=== PATIENT | female | born 1990 | race Caucasian/White ===

== ENCOUNTER 2022-10-21 15:38 | Outpatient (REF) | payer MEDICAID, SELFPAY ==
--- NOTE | ~2022-10-21 | US_ITS ---
EXAMINATION: US PELVIS COMPLETE CLINICAL INFORMATION: Abnormal uterine bleeding COMPARISON: CT abdomen pelvis 05/02/2011 TECHNIQUE: Transabdominal and transvaginal imaging was performed. FINDINGS: The uterus is anteverted and retroflexed in position measuring 6.6 x 2.8 x 4.6 cm. A regular homogeneous endometrium is identified measuring 1.1 cm. Both ovaries are of normal size and echogenicity. The right measures 2.2 x 0.8 x 1.7 cm for a volume of 1.6 mL. The left measures 2.1 x 1.2 x 1.7 cm for a volume of 2.2 mL. There is trace physiologic volume pelvic free fluid. US/US pelvic and transvaginal IMPRESSION: Unremarkable pelvic ultrasound.
== END 2022-10-21 15:39 | disposition home or self-care (01) ==
LOC: HO.US 15:38
PROVIDERS: PCP Registered Nurse; Visit Provider Registered Nurse
DX: N93.9 Abnormal uterine and vaginal bleeding, unspecified (principal)
CPT/HCPCS: 76830; 76856

== ENCOUNTER 2022-11-18 09:23 | Outpatient (REF) | payer MEDICAID, SELFPAY ==
--- NOTE | 2022-11-18 09:29 | EMG_ITS ---
Please see scanned EMG / Nerve Conduction Report. MTDD
== END 2022-11-18 09:24 | disposition home or self-care (01) ==
LOC: HO.NEURO 09:23
PROVIDERS: PCP Registered Nurse; Visit Provider Family Medicine
DX: G62.89 Other specified polyneuropathies (principal)
CPT/HCPCS: 95885; 95910

== ENCOUNTER 2022-12-10 08:43 | Outpatient (REF) | payer MEDICAID, SELFPAY ==
--- NOTE | 2022-12-10 | EMG_ITS ---
Left tibial and peroneal motor studies were performed. Left superficial peroneal and sural sensory studies were performed. Tibial H-reflex was obtained and paraspinal muscles were tested with a needle. IMPRESSION: 1. Iwfi-he-rwdfnart left axonal sensory motor peripheral neuropathy. 2. Chronic left lower lumbar radiculopathy. MD ABBY Fields/AMELIE / [id number]
== END 2022-12-10 08:44 | disposition home or self-care (01) ==
LOC: HO.NEURO 08:43
PROVIDERS: PCP Registered Nurse; Visit Provider Family Medicine
DX: G62.89 Other specified polyneuropathies (principal)
CPT/HCPCS: 95860; 95886; 95907; 95909

== ENCOUNTER 2023-05-31 16:10 | Outpatient (REF) | payer MEDICAID, SELFPAY ==
[2023-05-31 17:57] LABS: Anion Gap 14 (12-20); Blood Urea Nitrogen 8 mg/dL (9-16); Calcium 9.1 mg/dL (8.4-10.2); Carbon Dioxide 26 mmol/L (22-29); Chloride 104 mmol/L (96-108); Estimated Glomerular Filt Rate > 60; Glucose Random 70 mg/dL (60-115); Potassium 3.9 mmol/L (3.3-5.1); Sodium 140 mmol/L (135-145)
[2023-05-31 18:12] LABS: TSH reflex Free T4 2.91 uIU/mL (0.32-4.0); Vitamin D 25-OH Total 22.7 ng/mL (>30)
== END 2023-05-31 16:11 | disposition home or self-care (01) ==
LOC: HO.HHCL 16:10
PROVIDERS: Visit Provider Internal Medicine
DX: R10.13 Epigastric pain (principal); K58.1 Irritable bowel syndrome with constipation; K21.9 Gastro-esophageal reflux disease without esophagitis
CPT/HCPCS: 36415; 80048; 82306; 84443

== ENCOUNTER 2023-12-31 10:01 | Outpatient (REF) | payer MEDICAID, SELFPAY ==
[2023-12-31 11:10] LABS: MANUAL DIFF FLAG NO
[2023-12-31 11:20] LABS: Basophils Percent Auto 0.5 % (0-2); Eosinophils Absolute Auto 0.1 X10*3/uL (0.0-0.4); Eosinophils Percent Auto 1.4 % (0-4); Hematocrit 36.4 % (37.0-47.0); Hemoglobin 11.7 g/dl (12.0-16.0); Imm Gran Abs Auto 0.02 X10*3/uL (0.00-0.03); Imm Gran Pct Auto 0.4 % (0.0-0.4); Lymphocytes Absolute Auto 2.1 X10*3/uL (1.2-4.9); Lymphocytes Percent Auto 37.7 % (20-40); Mean Corpuscular HGB Conc 32.1 g/dl (31.0-35.0); Mean Corpuscular Hemoglobin 28.5 pg (27.0-33.0); Mean Corpuscular Volume 88.8 fL (80.0-98.0); Mean Platelet Volume 10.8 fL (9.4-12.3); Monocytes Absolute Auto 0.4 X10*3/uL (0.1-1.2); Monocytes Percent Auto 7.2 % (2-11); Neutrophils Percent Auto 52.8 % (45-73); Platelet Count 161 X10*3/uL (160-400); Red Cell Distribution Width 13.6 % (11.0-16.0); White Blood Count 5.7 X10*3/uL (4.8-10.8)
[2023-12-31 12:09] LABS: Alanine Aminotransferase 15 U/L (0-31); Albumin Level 3.6 g/dL (3.5-5.0); Alkaline Phosphatase 86 U/L (39-117); Anion Gap 8 (12-20); Aspartate Amino Transferase 15 U/L (5-31); Bilirubin Total 0.3 mg/dL (0.0-1.0); Blood Urea Nitrogen 5 mg/dL (9-16); Calcium 8.8 mg/dL (8.4-10.2); Carbon Dioxide 29 mmol/L (22-29); Chloride 106 mmol/L (96-108); Cholesterol 176 mg/dL (<200); Estimated Glomerular Filt Rate > 60; Glucose Random 74 mg/dL (60-115); HDL Cholesterol 64 mg/dL (>40); LDL Cholesterol Calculated 101 mg/dL (<100); Sodium 139 mmol/L (135-145); TSH reflex Free T4 2.64 uIU/mL (0.32-4.0); Total Protein 6.3 g/dL (6.5-8.0); Triglycerides 57 mg/dL (<150)
[2023-12-31 12:29] LABS: Estimated Average Glucose 105 mg/dL; Hemoglobin A1c % 5.3 % (<6.0)
[2023-12-31 14:22] LABS: Reflex LDLD? No
[2024-01-01 04:03] LABS: HBS Num1 0.37 mIU/mL (0-7.99); HBc Num1 0.32 S/CO (0.00-0.79); HIV AB/AG Nonreactive (Nonreactive); HIV Num 1 0.06 S/CO (0.00-0.99); Hepatitis A Antibody IgM 0.15 Index (0-0.79); Hepatitis B Core Antibody Nonreactive (Nonreactive); Hepatitis B Surface Antigen Negative (Negative); ~HepC Num1 0.17 S/CO (0.00-0.79); ~Hepatitis A Antibody IgM Nonreactive (Nonreactive); ~Hepatitis B Surface Antibody NONREACTIVE (Nonreactive); ~Hepatitis C Antibody Nonreactive (Nonreactive)
[2024-01-04 12:09] LABS: RPR Rapid Plasma Reagin NON-REACTIVE (NON-REACTIVE)
== END 2023-12-31 10:02 | disposition home or self-care (01) ==
LOC: HO.HHCL 10:01
PROVIDERS: Visit Provider Internal Medicine
DX: Z00.00 Encounter for general adult medical examination without abnormal findings (principal)
CPT/HCPCS: 36415; 80053; 80061; 83036; 84443; 85025; 86592; 86704; 86706; 86709; 86803; 87340; 87389

== ENCOUNTER 2025-01-30 10:21 | Outpatient (REF) | payer MEDICAID, SELFPAY ==
--- OUTSIDE RECORDS SUMMARY | 2025-01-30 09:30 | XMS_ITS | Encounter Summary ---
Author Organization [employer] Address [address] [place] [address] 7 [place] [address] Care Team Providers Care Leather Goods Sales Representative Name Role Phone Nguyen Garza MD Primary Care Provide r Reason for Referral * Consultation (Routine) - Authorized Specialty Diagnoses / Procedures Referred By Contcortez boyce Referred To Contact Behavioral Health Diagnoses Anxiety Nguyen Garza MD [address] [place] [phone] Phone: tel: fax: Referral ID Status Reason Start Date Expiration Date Visits Requested Visits Authorized [id number] Authorized Specialty Services Required 01/30/2025 01/30/2026 1 1 Encounter Details Date Type Department Care Team (Latest Contact Info) Description 01/30/2025 9:30 AM EDT Office Visit [facility] [address] [place] [address] [phone] Nguyen Garza MD [address] [place] [address] [phone] Anxiety (Primary Dx); Neuropathy; Chronic migraine without aura without status migrainosus, not intractable; Chronic bilateral low back pain without sciatica; Encounter for preventive care; Opioid dependence, uncomplicated (CMS/HCC); Dietary counseling; Exercise counseling Social History Tobacco Use Types Packs/Day Years Used Date Smoking Tobacco: Every Day Cigarettes 0.3 20 Smokeless Tobacco: Never Alcohol Use Standard Drinks/Week Comments Not Currently 0 (1 standard drink = 0.6 oz pur e alcohol) Depression Answer Date Recorded Patient Health Questionnaire-9 Score 13 12/31/2023 Patient Health Questionnaire-9 Score 13 12/31/2023 Last PHQ-9: Questionnaire Data Not on file 0 12/31/2023 Housing Stability Answer Date Recorded What is your housing situation today? I do not have housing (Staying with others, in a hotel, in a jail, living outside on the street, on a beach, in a car, or in a park 12/10/[address] you li ve. Do you have problems with any of the following? Not on file 12/10/2024 Food Insecurity Answer Date Recorded Within the past 12 months, y ou worried that your food would run out before you got money to buy more: Sometimes True 2023 Within the past 12 months,th e food you bought just didn't last and you didn't have enough money to get more: Sometimes True 12/31/2023 Transportation Answer Date Recorded In the past 12 months, has l ack of transportation kept you from medical appts, meetings, work or from getting things needed for daily living? Yes, it has kept me from medical appointments or getting medications. 12/31/2023 Utilities Answer Date Recorded In the past 12 months, has t he electric, gas, oil or water company threatened to shut off services in your home? No 12/10/2023 Depression Answer Date Recorded Patient Health Questionnaire-2 Score 3 12/31/2023 Internet Access Answer Date Recorded Internet Access Q1 No 12/31/2023 Internet Access Q2 My internet/Wi-Fi ac cess is not consistent or reliable 12/31/2023 Comments Unknown Sex and Gender Information Value Date Recorded Sex Assigned at Female 03/02/2022 10:19 AM EDT Legal Sex Female 10:19 AM EDT Gender Identity Female 03/02/2022 10:19 AM EDT Sexual Orientation Straight 03/02/2022 10 :19 AM EDT documented as of this encounter Last Filed Vital Signs Vital Sign Reading Time Taken Comments Blood Pressure 124/82 01/30/2025 9:56 AM EDT Pulse 74 01/30/2025 9:56 AM EDT Temperature 36.4 C (97.6 F) 01/30/2025 9:56 AM EDT Respiratory Rate 20 01/30/2025 9:56 AM EDT Oxygen Saturation 94% 01/30/2025 9:56 AM EDT Inhaled Oxygen Concentration - - Weight 78.3 kg (172 lb 9.6 oz) 01/30/2025 9:56 A M EDT Height 165.1 cm (5' 5 ) 01/30/2025 9:56 AM EDT Body Mass Index 28.72 01/30/2025 9:56 AM EDT documented in this encounter Plan of Treatment Upcoming Encounters Date Type Department Care Team (Late st Contact Info) Description 03/07/2025 3:30 PM EST Telemedicine [facility] [address] [place] [address] Nguyen Garza MD [address] [place] [address] Scheduled Orders Name Type Priority Associated Diagnoses Orde r Schedule CBC auto differential Lab Routine Encounter for preventive care Expected: 01/30/2025 (Approximate), Expires: 01/30/2026 Comprehensive Metabolic Panel Lab Routine Encounter for preventive care Expected: 01/30/2025 (Approximate), Expires: 01/30/2026 Hemoglobin A1c Lab Routine Encounter for preventive care Expected: 01/30/2025 (Approximate), Expires: 01/30/2026 HIV-1/2 Antigen and Antibodies, Fourth Generation, with Reflexes Lab Routine Encounter for preventive care Expected: 01/30/2025 (Approximate), Expires: 01/30/2026 Hepatitis C Antibody with Reflex to HCV, RNA, Quantitative, Real-Time PCR Lab Routine Encounter for preventive care Expected: 01/30/2025, Expires: 01/30/2026 Lipid Panel, Standard Lab Routine Encounter for preventive care Expected: 01/30/2025 (Approximate), Expires: 01/30/2026 Vitamin D, 25-Hydroxy, Total, Immunoassay Lab Routine Encounter for preventive care Expected: 01/30/2025 (Approximate), Expires: 01/30/2026 TSH with Reflex to Free T4 Lab Routine Encounter for preventive care Expected: 01/30/2025 (Approximate), Expires: 01/30/2026 RPR (Monitor) with Reflex to Titer Lab Routine Encounter for preventive care Expected: 01/30/2025, Expires: 01/30/2026 Chlamydia/N. Gonorrhoeae RNA, TMA, Vaginal Microbiology Routine Encounter for preventive care Ordered: 01/30/2025 Scheduled Referrals Name Type Priority Associated Diagnoses Order Schedule Referral to Behavioral Health Outpatient Referral Routine Anxiety Expected: 01/30/2025 (Approximate), Expires: 07/30/2026 documented as of this encounter Visit Diagnoses Diagnosis Anxiety- Primary Anxiety state, unspecified Neuropathy Mononeuritis of unspecified site Chronic migraine without aura without status migrainosus, not intractable Chronic bilateral low back pain without sciatica Encounter for preventive care Opioid dependence, uncomplicated (CMS/HCC) (HCC) Dietary counseling Dietary surveillance and counseling Exercise counseling documented in this encounter Additional Health Concerns Assessment Noted Time PHQ-9 Depression Total Score: 13 024 9:31 AM EDT documented as of this encounter Care Teams Leather Goods Sales Representative Relationship Specialty Start Date End Date Nguyen Garza MD [address] [place] [address] PCP - General Internal Medicine 08/28/24 Maribeth Brunner Mitigation SupervisorOrthopedic Brace Maker 10/21/23 documented as of this encounter
--- OUTSIDE RECORDS SUMMARY | 2025-01-30 11:31 | XMS_ITS | Encounter Summary ---
Author Organization [employer] Address [address] 7[address] [place] [address] Care Team Providers Care Direct Mail Marketer Name Role Phone Esperanza BowerP Primary Care Provider [phone] Jyothi Mayo NP Primary Care Provider [phone] Nguyen Garza MD Primary Care Provide r Encounter Details Date Type Department Care Team (Late st Contact Info) Description 02/22/2023 Telephone [facility] [address] [place], [place] [phone] Esperanza Bower FNP [address] [place], [place] [phone] Social History Tobacco Use Types Packs/Day Years Used Date Smoking Tobacco: Every Day Cigarettes 0.3 20 Smokeless Tobacco: Never Alcohol Use Standard Drinks/Week Comments Not Currently 0 (1 standard drink = 0.6 oz pur e alcohol) Depression Answer Date Recorded Patient Health Questionnaire-9 Score 8 08/20/2022 Housing Stability Answer Date Recorded What is your housing situation today? I do not have housing (Staying with others, in a hotel, in a mcc, living outside on the street, on a beach, in a car, or in a park 02/07/[address] you li ve. Do you have problems with any of the following? None of the above 02/07/2023 Food Insecurity Answer Date Recorded Within the past 12 months, y ou worried that your food would run out before you got money to buy more: Sometimes True 2022 Within the past 12 months,th e food you bought just didn't last and you didn't have enough money to get more: Sometimes True 02/15/2023 Transportation Answer Date Recorded In the past 12 months, has l ack of transportation kept you from medical appts, meetings, work or from getting things needed for daily living? Yes, it has kept me from medical appointments or getting medications.;Yes, it has kept me from non-medical meetings, work, or getting things that I need 02/07/2023 Utilities Answer Date Recorded In the past 12 months, has t he [employer], gas, oil or water [employer] threatened to shut off services in your home? No 02/15/2023 Depression Answer Date Recorded Patient Health Questionnaire-2 Score 2 08/20/2022 Comments Unknown Sex and Gender Information Value Date Recorded Sex Assigned at Female 03/02/2022 10:19 AM EDT Legal Sex Female 10:19 AM EDT Gender Identity Female 03/02/2022 10:19 AM EDT Sexual Orientation Straight 03/02/2022 10 :19 AM EDT documented as of this encounter Plan of Treatment Upcoming Encounters Date Type Department Care Team (Late st Contact Info) Description 03/07/2025 3:30 PM EST Telemedicine [facility] [address] [place] [address] [phone] Nguyen aGrza MD [address] [place] [address] documented as of this encounter Visit Diagnoses Not on filedocumented in this encounter Additional Health Concerns Assessment Noted Time PHQ-9 Depression Total Score: 8 08/21/19 23 1:17 PM EDT documented as of this encounter Care Teams Direct Mail Marketer Relationship Specialty Start Date End Date Esperanza Bower FNP [address] [place] [address] PCP - General Family Medicine 11/04/22 01/03/24 Jyothi Mayo NP [address] [place] [address] PCP - General Family Medicine 01/04/24 08/27/24 Nguyen Garza MD [address] [place] [address] PCP - General Internal Medicine 08/28/24 Maribeth Brunner Personal CounselorConveyor Attendant 10/21/23 documented as of this encounter
--- OUTSIDE RECORDS SUMMARY | 2025-01-30 11:31 | XMS_ITS | Encounter Summary ---
Author Organization [employer] Address [address] [place] [address] 7 [place] [address] Care Team Providers Care Packing Floor Worker Name Role Phone Esperanza BowerP Primary Care Provider [phone] Jyothi Mayo NP Primary Care Provider [phone] Nguyen Garza MD Primary Care Provide r Reason for Visit * Reason Comments Med Refill Encounter Details Date Type Department Care Team (Late st Contact Info) Description 12/15/2022 Refill [facility] [address] [place] [address] Alla Roe FNP Constipation, unspecified constipation type Social History Tobacco Use Types Packs/Day Years Used Date Smoking Tobacco: Every Day Cigarettes 0.3 20 Smokeless Tobacco: Never Alcohol Use Standard Drinks/Week Comments Not Currently 0 (1 standard drink = 0.6 oz pur e alcohol) Depression Answer Date Recorded Patient Health Questionnaire-9 Score 8 08/20/2022 Depression Answer Date Recorded Patient Health Questionnaire-2 [...] Info) Description 03/07/2025 3:30 PM EST Telemedicine [facility] [address] [place], [place] [phone] Nguyen Garza MD [address] [place] [address] documented as of this encounter Visit Diagnoses Diagnosis Constipation, unspecified constipation type documented in this encounter Additional Health Concerns Assessment Noted Time PHQ-9 Depression Total Score: 8 08/21/19 23 1:17 PM EDT documented as of this encounter Care Teams Packing Floor Worker Relationship Specialty Start Date End Date Esperanza Bower FNP [address] [place], [place] [phone] PCP - General Family Medicine 11/04/22 01/03/24 Jyothi Mayo NP [address] [place] [address] [phone] PCP - General Family Medicine 01/04/24 08/27/24 Nguyen Garza MD [address] [place] [address] [phone] PCP - General Internal Medicine 08/28/24 Maribeth Brunner [employer] Mdm DeveloperLicensed Sales Assistant 10/21/23 documented as of this encounter
--- OUTSIDE RECORDS SUMMARY | 2025-01-30 11:31 | XMS_ITS | Encounter Summary ---
Author Organization [employer] Address [address] [place] [address] 7 [place] [address] Care Team Providers Care Client Analyst Name Role Phone Esperanza Bower Primary Care Provider [phone] Jyothi Mayo NP Primary Care Provider [phone] Nguyen Garza MD Primary Care Provide r Reason for Visit * Reason Onset Date Comments PT-1 11/17/2023 Encounter Details Date Type Department Care Team (Late st Contact Info) Description 11/17/2023 Telephone [facility] [address] [place], [place] [phone] Esperanza Bower FNP [address] [place], [place] [phone] PT-1 Social History Tobacco Use Types Packs/Day Years [...] with others, in a hotel, in a long-term, living outside on the street, on a [...] AM EDT documented as of this encounter Miscellaneous Notes * Telephone Encounter - Blake Grupo - 11/17/2023 4:38 PM EDT Patient calling requesting PT1 Home Address verified: Y/N: Yes Provider name or facility name: [facility] Facility Address: [address] [facility] Escort needed: Y/N: No Do you have a wheelchair: Y/N: No If yes- Manual or electric: N/A Visits: 3 monthly Patient calling requesting PT1 Home Address verified: Y/N: Yes Provider name or facility name: [facility] Facility Address: [address] Escort needed: Y/N: No Do you have a wheelchair: Y/N: No If yes- Manual or electric: N/A Visits: 2 monthly Patient calling requesting PT1 Home Address verified: Y/N: Yes Provider name or facility name: [facility] Facility Address: [address] [place] [address] Escort needed: Y/N: No Do you have a wheelchair: Y/N: No If yes- Manual or electric: N/A Visits: 4 monthly Patient calling requesting PT1 Home Address verified: Y/N: Yes Provider name or facility name: [facility] Facility Address: [address] [facility] [place] needed: Y/N: No Do you have a wheelchair: Y/N: No If yes- Manual or electric: N/A Visits: Once every 3 months documented in this encounter Plan of Treatment Upcoming Encounters Date Type Department Care Team (Late st Contact Info) Description 03/07/2025 3:30 PM EST Telemedicine [facility] [address] [facility] [place] [address] Nguyen Garza MD [address] [facility] [place] [address] documented as of this encounter Visit Diagnoses Not on filedocumented in this encounter Additional Health Concerns Assessment Noted Time PHQ-9 Depression Total Score: 8 08/21/19 23 1:17 PM EDT documented as of this encounter Care Teams Client Analyst Relationship Specialty Start Date End Date Esperanza Bower FNP [address] [facility] [place] [address] PCP - General Family Medicine 11/04/22 01/03/24 Jyothi Mayo NP [facility] [place] [address] PCP - General Family Medicine 01/04/24 08/27/24 Nguyen Garza MD [facility] [place] [address] PCP - General Internal Medicine 08/28/24 Maribeth Brunner Formula Room WorkerReview Manager 10/21/23 documented as of this encounter
--- OUTSIDE RECORDS SUMMARY | 2025-01-30 11:31 | XMS_ITS | Encounter Summary ---
Author Organization [employer] Address [address] [facility] 7t [place] [address] Care Team Providers Care Wardrobe Specialist Name Role Phone Esperanza Bower Primary Care Provider [phone] Jyothi Mayo NP Primary Care Provider [phone] Nguyen Garza MD Primary Care Provide r Reason for Visit * Reason Comments Med Refill Encounter Details Date Type Department Care Team (Late st Contact Info) Description 02/11/2023 Refill [facility] [address] [place] [address] Alla Roe FNP Social History Tobacco Use Types Packs/Day Years [...] with others, in a hotel, in a nursing home, living outside on the street, on a [...] Info) Description 03/07/2025 3:30 PM EST Telemedicine [facility] [address] [place] [address] Nguyen Garza MD [address] [place] [address] documented as of this encounter Visit Diagnoses Not on filedocumented in this encounter Additional Health Concerns Assessment Noted Time PHQ-9 Depression Total Score: 8 08/21/19 23 1:17 PM EDT documented as of this encounter Care Teams Wardrobe Specialist Relationship Specialty Start Date End Date Esperanza Bower FNP [address] [place] [address] PCP - General Family Medicine 11/04/22 01/03/24 Jyothi Mayo NP [address] [place] [address] PCP - General Family Medicine 01/04/24 08/27/24 Nguyen Garza MD [address] [place] [address] PCP - General Internal Medicine 08/28/24 Maribeth Brunner Manager AdministrativeBalance Sheet Analyst 10/21/23 documented as of this encounter
--- OUTSIDE RECORDS SUMMARY | 2025-01-30 11:31 | XMS_ITS | Encounter Summary ---
Author Organization [employer] Address [address] [facility] 7t [place] [address] Care Team Providers Care Director Inpatient Headache Program Name Role Phone Esperanza Bower Primary Care Provider [phone] Jyothi Mayo NP Primary Care Provider [phone] Nguyen Garza MD Primary Care Provide r Reason for Visit * Reason Comments Med Refill Encounter Details Date Type Department Care Team (Late st Contact Info) Description 08/18/2023 Refill [facility] [address] [place], [place] [phone] Esperanza Bower FNP [address] [place], [place] [phone] Social History Tobacco Use Types Packs/Day Years [...] with others, in a hotel, in a senior care, living outside on the street, on a [...] the past 12 months, has t he [employer], gas, oil or water [employer] threatened to shut off services in your [...] Info) Description 03/07/2025 3:30 PM EST Telemedicine [facility] [address] [place] [address] Nguyen Garza MD [address] [place] [address] documented as of this encounter Visit Diagnoses Not on filedocumented in this encounter Additional Health Concerns Assessment Noted Time PHQ-9 Depression Total Score: 8 08/21/19 23 1:17 PM EDT documented as of this encounter Care Teams Director Inpatient Headache Program Relationship Specialty Start Date End Date Esperanza Bower FNP [address] [place], [place] [phone] PCP - General Family Medicine 11/04/22 01/03/24 Jyothi Mayo NP [address] [place], [place] [phone] PCP - General Family Medicine 01/04/24 08/27/24 Nguyen Garza MD [address] [place] [address] PCP - General Internal Medicine 08/28/24 Maribeth Brunner Interior HorticulturistPari Mutuel Ticket Seller 10/21/23 documented as of this encounter
--- OUTSIDE RECORDS SUMMARY | 2025-01-30 11:31 | XMS_ITS | Clinical Summary ---
Author Organization [employer] Address [address] [facility] [address] [place] [address] Care Team Providers Care Blocker And Cutter Contact Lens Name Role Phone Nguyen Garza MD Primary Care Provide r Allergies Active Allergy Reactions Criticality Noted Date Comments Ibuprofen Hives 07/09/2022 Medications methadone (Dolophine) 10 MG/5ML solution Take by mouth. Active lansoprazole (Prevacid SoluTab) 15 MG disintegrating tabletIndications :Dyspepsia,Irrita ble bowel syndrome with constipation,Cindy roesophageal reflux disease, unspecified whether esophagitis present DISSOLVE 1 TABLET ON TONGUE IN THE MORNING BEFORE SEALLOWING. DO NOT CHEW, CUT OR BREAK 90 tablet 06/02/19 24 Active famotidine (Pepcid) 20 MG tabletIndications :Dyspepsia Take 1 tablet (20 mg) by mouth 2 times daily. 60 tablet 11 12/31/19 24 Active Banophen 25 MG capsuleIndication s:Other polyneuropathy TAKE 1 CAPSULE BY MOUTH EVERY DAY NEEDED FOR ITCHING OR ALLERGIES (PRE-MED PRIOR TO MELOXICAM) 30 capsule 2 01/26/20 24 Active cetirizine (ZyrTEC) 10 MG tablet TAKE 1 TABLET BY MOUTH EVERY DAY IN THE MORNING 90 tablet 2 05/18/19 25 Active sennosides (Senokot) 8.6 MG tablet Take 1 tablet (8.6 mg) by mouth Once per day. 30 tablet 11 08/23/19 25 026 Active FLUoxetine (PROzac) 20 MG capsule Take 1 capsule (20 mg) by mouth Once per day. 90 capsule 2 08/23/19 25 Active multivitamin () 27-0.8 MG tablet Take 1 tablet by mouth Once per day. 30 tablet 11 08/23/19 25 Active gabapentin (Neurontin) 300 MG capsuleIndication s:Neuropathy Take 1 capsule (300 mg) by mouth 3 times daily. 90 capsule 2 01/31/20 25 026 Active SUMAtriptan (Imitrex) 50 MG tabletIndications :Chronic migraine without aura without status migrainosus, not intractable Take 1 tablet (50 mg) by mouth 1 (one) time if needed for migraine for up to 18 doses. May repeat dose once in 2 hours if no relief. Do not exceed 2 doses in 24 hours. 9 tablet 1 01/31/20 25 Active cyclobenzaprine (Flexeril) 5 MG tabletIndications :Chronic bilateral low back pain without sciatica Take 1 tablet (5 mg) by mouth 3 times daily for 10 days. 30 tablet 01/31/20 25 025 Active acetaminophen (Tylenol Extra Strength) 500 MG tabletIndications :Chronic bilateral low back pain without sciatica Take 2 tablets (1,000 mg) by mouth every 8 (eight) hours if needed for moderate pain for up to 15 days. 30 tablet 2 01/31/20 25 025 Active Acetaminophen Extra Strength 500 MG tablet TAKE 1 TABLET BY MOUTH EVERY 6 (SIX) HOURS IF NEEDED FOR MILD PAIN. 120 tablet 10/17/19 25 025 Discontinued Active Problems Problem Noted Date Diagnosed Date Chronic bilateral low back pain without sciatica 01/30/2025 Positive test 08/22/2024 Assessment & Plan (08/22/2024 7:20 PM EDT): She is approx 7-8 week , she doesn't know the exact date of her LMP, will order quantitative hCG. We discussed with patient regarding options and she wants to discuss it with her partner. I will preemptively taper down escitalopram and overlap with fluoxetine in 2 weeks and she can follow-up with her PCP to continue titration of medications Order labs Start multivitamins Advised to quit THC and avoid any recreational substance She will be referred to OB after labs (quant HCG) are done, she has PP information as well She feels safe at home, she is able to reach out for safety Advised to let her methadone program providers re Smoking 12/31/2023 H/O abnormal cervical Papanicolaou smear 024 Other constipation 12/31/2023 Assessment & Plan (08/22/2024 5:31 PM EDT): Increase water intake, use Senokot and increase fiber I will DC Linzess due to positive test. She needs to follow-up with PCP Assessment & Plan (12/31/2023 9:58 AM EDT): Drink more water and more fiber on her diet I start her also on senna Encounter for preventive care 12/31/2023 Assessment & Plan (12/31/2023 9:59 AM EDT): See HPI Venous insufficiency of both lower extremities 0 12/31/2023 Assessment & Plan (12/31/2023 9:57 AM EDT): Elevate legs at the end of the day Wear compression stockings every day Gastroesophageal reflux disease 05/31/2023 Assessment & Plan (05/31/2023 4:15 PM EST): Counseled to quit smoking, weight reduction. Start lansoprazole daily x 2m FU with GI. Dyspepsia 05/31/2023 Assessment & Plan (12/31/2023 9:57 AM EDT): I advise patient to avoid NSAIDs, spicy and acid food, I advise to eat at the same time every day, I advise to elevate the head of the bed and take medications as prescribe Assessment & Plan (05/31/2023 4:14 PM EST): Sec to GERD Use lansoprazole daily and simethicone prn She will cut back on high carbs, sugary drinks FU with GI. Housing instability 11/04/2022 Overview (11/04/2022): Referred to [facility] on 08/20/22 Housing situation has changed Assessment & Plan (11/04/2022 6:21 PM EDT): Needs f/u by SDOH Will task SDOH team Followup 2 months or sooner PRN with new PCP Hair loss 11/04/2022 Overview (11/04/2022): Chronic hair loss x 17 years Thought it might be r/t wearing hair so tight Never evaluated by Derm RPR negative 07/29/22 TSH WNL 07/29/22 Assessment & Plan (11/04/2022 6:22 PM EDT): Educated that biotin is not recommended for hair loss since the level may not improve hair loss and excess may affect thyroid Refer to Derm Followup 2 months or sooner PRN with new PCP Abnormal uterine bleeding (AUB) 09/30/2022 Irritable bowel syndrome with constipation 09/30 Overview (11/04/2022): Discussed constipation, chronic according to hx Educated to increase water intake, at least 4 bottles/day. Recommended daily adult intake 8 bottles/day. Miralax made stool too soft/watery, and urgency Assessment & Plan (05/31/2023 4:16 PM EST): Continue colace, add yaz Wong miralax FU with GI Counseled to get labs done ordered by previous PCP Assessment & Plan (11/04/2022 2:34 PM EDT): Discontinue miralax Rx Docusate sodium 100mg BID PRN, start taking 1 tablet at bedtime PRN first time. Refer to GI F/u PRN Heartburn 09/30/2022 Poor dentition 08/23/2022 Overview (11/04/2022): Pt has poor dentition, broken teeth, caries Refer to Dentist on 08/20/22 Assessment & Plan (11/04/2022 6:18 PM EDT): Made appt with [facility] Dental Upcoming Stable Followup 2 months or sooner PRN with new PCP Opioid dependence, uncomplicated (CMS/HCC) 08/23 Overview (11/04/2022): Currently in recovery; taking daily Methadone (has Narcan Rx). Stable Baseline EKG performed by Methadone clinic, Assessment & Plan (11/04/2022 6:17 PM EDT): F/u PRN Neuropathy 08/23/2022 Overview (11/04/2022): Hx c/w neuropathic pain EMG ordered 07/09/22, not performed yet Will Task MA to check on status of scheduling Pt would like to avoid medications that further potentiate Methadone and strong medications Discontinue alpha lipoic acid, too expensive, out of pocket Rx Gabapentin 100mg TID PRN for neuropathy Educated on Sedating SE, and risk of medication. Pt will notify methadone clinic of new medication Assessment & Plan (11/04/2022 6:18 PM EDT): Improving nerve pain, worse in feet and arms Not sedating Stable EMG pending LUE for 11/18/22 F/u 1-2 month or sooner PRN with new PCP Chronic migraine without aur a without status migrainosus, not intractable 08/23/2022 Overview (11/04/2022): Chronic x 5 years, worsening. Daily. Aggravated by stress, photophobia Treating by falling asleep, Excedrin migraine 1-2 tablets three times a day. Pt reports chronic migraines, excessive excedrin daily use Educated pt on medication overuse headaches Will Rx Sumatriptan 25 mg PRN, educated to take 1 tablet at onset of headache and 2 hours later another tablet if sx persist Assessment & Plan (11/04/2022 6:17 PM EDT): Improved Continue sumatriptan Followup 2 months or sooner PRN with new PCP Anxiety 08/23/2022 Overview (11/04/2022): Multiple life stressors Prozac 20 mg daily Pt has referral for therapy, initial BE by [facility] every Wednesday Assessment & Plan (08/22/2024 5:32 PM EDT): She has been out of care at [facility] for few months now, awaiting a new psychiatrist. We had an extensive discussion about importance of mental health treatment during and , I will refer her to team and she needs to follow-up with PCP I will taper down escitalopram for the next 2 to 3 weeks and start fluoxetine 20 mg in 2 weeks. DC gabapentin Patient feels safe at home and is able to reach out for safety, she tells her partner. Assessment & Plan (11/04/2022 6:18 PM EDT): Continue therapy Continue current regimen Followup 2 months or sooner PRN with new PCP Health care maintenance 08/23/2022 Overview (11/04/2022): Routine Health Maintenance: Immunizations: Pt needs Hep B Vaccine Dose #1, received today 08/20/22 HIV: Nonreactive 07/29/22 Hep C: Nonreactive 07/29/22 Hepatitis B: Surface antibodies nonreactive 07/29/22. Hep B dose #1 on 08/20/22 Pap Smear: 09/30/22 NILM, HPV neg, repeat 5 years. 09/2027 Mammogram: Not due yet Colonoscopy: Not due yet Lung cancer: Discussed smoking cessation Eye: discuss at next visit Dental: pending [facility] dental appt Encounters Date Type Department Care Team Description 01/30/2025 9:30 AM EDT Office Visit [facility] [address] [place] [phone] Nguyen Garza MD Anxiety (Primary Dx); Neuropathy; Chronic migraine without aura without status migrainosus, not intractable; Chronic bilateral low back pain without sciatica; Encounter for preventive care; Opioid dependence, uncomplicated (CMS/HCC); Dietary counseling; Exercise counseling 01/30/2025 Travel 01/29/[address] [phone] Nguyen Garza MD Chart Prep 01/22/2025 Patient Outreach [address] [phone] Nguyen Garza MD Pre-visit Planning ((Unable to reach for PVP screening and or LVM) to be completed in office) 01/18/[address] [phone] Nguyen Garza MD Medication Question 12/13/[address] [phone] Sera Oneal CNM chart prep 11/29/2024 Patient Outreach [address] [phone] Nguyen Garza MD Care Coordination ([facility] outreach for SDOH PT-1 and food needs-referral completed /) 11/29/[address] [phone] Nguyen Garza MD pt1 from Last 3 Months Immunizations Immunization Administration Dates Next Due Hep A, Adult 12/14/2012,03/16/2012 Hep B, Adolescent or Pediatric 01/15/2005,2004,09/12/2002 Hep B, adult 08/20/2022 Influenza, IIV3, injectable 01/15/2010 Influenza, Split (incl. salud fied surface antigen) 02/14/2013 Influenza, seasonal, injecta ble, preservative free 02/12/2016 MMR 12/07/1994,07/25/1991 TD (adult), 2 Lf tetanus tox oid, preservative free, adsorbed 02/08/2002 Tdap 10/17/2012 Social History Tobacco Use Types Packs/Day Years Used Date Smoking Tobacco: Every Day Cigarettes 0.3 20 Smokeless Tobacco: Never Tobacco Cessation:Ready to Q uit: Not Asked; Counseling Given: Not Answered Alcohol Use Standard Drinks/Week Comments Not Currently [...] Orientation Straight 03/02/2022 10 :19 AM EDT Last Filed Vital Signs Vital Sign Reading [...] Mass Index 28.72 01/30/2025 9:56 AM EDT Plan of Treatment Upcoming Encounters Date Type Department Care Team (Late st Contact Info) Description 03/07/2025 3:30 PM EST Telemedicine [facility] [address] [place] [address] Nguyen Garza MD [address] [place] [address] Health Maintenance Due Date Last Done Comments Disability Screening 1989 Alcohol/Substance Use Screening 2001 Family Planning (PISQ) 2004 HPV Vaccines (1 - 3-dose series) 2004 Pneumococcal Vaccine: Pediatrics (0 to 5 Years) and At-Risk Patients (6 to 49) Years (1 of 2 - PCV) 2008 DTaP/Tdap/Td Vaccines (3 - Td or Tdap) 10/17/2022 10/17/2012, 02/08/2002 Depression Monitoring 06/30/2024 12/31/2023, 024 SDOH Screening 12/09/2024 12/10/2023 COVID-19 Vaccine ( season) 2025 Influenza Vaccine (#1) 2025 6, 02/14/2013, 01/15/2010 Pap Smear 09/30/2025 09/30/2022 Tobacco Screening 01/30/2026 01/30/2025 Cervical Cancer Screening 10/01/2027 HPV/Cotest 10/01/2027 09/30/2022 Lipid Panel 12/30/2028 12/31/2023 Zoster Vaccines (1 of 2) 09/28/2039 RSV Patients and Patients Aged 60 years or older (1 - 1-dose 75+ series) 2064 Hepatitis A Vaccines Aged Out 12/14/2012, 03/16/20 12 No longer eligible based on patient's age to complete this topic Hepatitis B Vaccines Completed 08/20/2022, 01/15/2005, 06/26/2004, Additional history exists HIV Screening Completed 12/31/2023, 07/29/2022 Hepatitis C Screening Completed 12/31/2023, 023 HIB Vaccines Aged Out No longer eligi ble based on patient's age to complete this topic IPV Vaccines Aged Out No longer eligi ble based on patient's age to complete this topic Meningococcal B Vaccine Aged Out No l onger eligible based on patient's age to complete this topic Meningococcal Vaccine Aged Out No ruddy clifton eligible based on patient's age to complete this topic RSV under 20 months Aged Out No longe r eligible based on patient's age to complete this topic Rotavirus Vaccines Aged Out No longer eligible based on patient's age to complete this topic Procedures Procedure Name Priority Date/Time Associated Diagnosis Comments HEPATITIS PANEL, GENERAL Routine 12/31/2023 10:00 AM EDT Encounter for preventive care HIV 1/2 ANTIGEN/ANTIBODY, FOURTH GENERATION W/RFL Routine 12/31/2023 10:00 AM EDT Encounter for preventive care LIPID PANEL WITH REFLEX TO DIRECT LDL Routine 12/31/2023 10:00 AM EDT Encounter for preventive care THINPREP IMAGING PAP AND HPV MRNA E6/E7 WITH REFLEX TO HPV 16,18/45 Routine 09/30/2022 4:45 PM EDT Screening for malignant neoplasm of cervix from Last 3 Months or Most Recently Relevant to Health Maintenance Results * (ABNORMAL) Lipid Panel with Reflex to Direct LDL (12/31/2023 10:00 AM EDT) Triglycerides 57 <150 mg/dL [facility] Comment:Desirable Triglyceri de: less than 150 mg/dLBorderline High Triglyceride 150-199 mg/dLHigh Triglyceride: 200-499 mg/dLVery High Triglyceride: greater than or equal to 5OO mg/dL Cholesterol 176 <200 mg/dL [facility] Comment:Desirable Cholestero l: less than 200 mg/dLBorderline High Cholesterol: 200-239 mg/dLHigh Cholesterol: greater than 239 mg/dL LDL Cholesterol Calculated 101(H) <100 mg/dL [facility] Comment:Desirable LDL: less than 100 mg/dLNear Optimal/Above Optimal LDL: 110- 129 mg/dLBorderline High LDL: 130-159 mg/dLHigh LDL: 160-189 mg/dLVery High LDL: greater than or equal to 190 mg/dL HDL Cholesterol 64 >40 mg/dL [facility] Comment:Desirable HDL: great er than 40 mg/dL Note: This HDL assay may give artificially low results in patients with liver disease. Blood 12/31/2023 10:0 0 AM EDT 12/31/2023 11:06 AM EDT Nguyen Burnett MD LAB BLOOD ORDERABLES Final Result Performing Organization Address [facility] Co de Phone Number [facility] [address] [place] [address] [phone] Hepatitis Panel, General (12/31/2023 10:00 AM EDT) Hepatitis A IgM Nonreactive Nonreactive [facility] Comment:IgM antibodies to THOMAS V not detected; does not exclude earlyacute or recovered HAV infection. ~Hepatitis B Surface Antibody NONREACTIVE Nonreactive [facility] Comment:Nonreactive: < 8.00 mIU/mL Hepatitis B Core Antibody Nonreactive Nonreactive [facility] Hepatitis C Antibody Nonreactive Nonreactive [facility] Comment:Antibodies to HCV no t detected; does not exclude early acuteHCV infection. Hepatitis B Surface Ag Negative Negative [facility] Blood 12/31/2023 10:0 0 AM EDT 12/31/2023 11:06 AM EDT Nguyen Burnett MD LAB BLOOD ORDERABLES Final Result Performing Organization Address [facility] Co de Phone Number [facility] [address] [place] [address] [phone] * HIV-1/2 Antigen and Antibodies, Fourth Generation, with Reflexes (12/31/2023 10:00 AM EDT) HIV AB/AG Nonreactive Nonreactive [facility] Comment:HIV-1 p24 Ag and/or HIV-1/HIV-2 Ab not detected.A test result that is nonreactive does not exclude thepossibility of exposure to or infection with HIV-1 and/orHIV-2. Nonreactive results in this assay for individualswith prior exposure to HIV-1 and/or HIV-2 may be due toantigen and antibody levels that are below the limit ofdetection of this assay.The [employer] HIV Ag/Ab Combo assay result andsupplemental assay results should be interpreted inconjunction with the patient's clinical presentation,history and other laboratory results. If the results areinconsistent with clinical evidence, additional testing issuggested to confirm the result. Blood Venous blood specimen / Unknown 12/31/2023 10:00 AM EDT 12/31/2023 11:06 AM EDT us Nguyen Burnett MD LAB BLOOD ORDERABLES Final Result [facility] [address] [place] [phone] * Thinprep TIS PAP And HPV mRNA E6/E7 With Reflex To HPV 16,18/45 (09/30/2022 4:45 PM EDT) Clinical Information: HX OF ABNORMAL PAP,UNKNOWN RECORD [facility] LMP: NONE GIVEN [employer] [place] [employer] [facility] Prev. PAP: NONE GIVEN [facility] Prev. BX: YES [employer] [facility] SOURCE: None given [employer] [facility] Statement Of Adequacy: [facility] Comment: Satisfactory for evaluation. Endocervical/transformation zone component absent. Interpretation/ Result: Negative for intraepithelial lesion or malignancy. [facility] COMMENT: This Pap test has been evaluated with computer assisted technology. [facility] [employer]: [facility] Comment: KR, CT(ASCP) CT screening location: [address] [phone] (Always Message) [employer] Comment: EXPLANATORY NOTE: The Pap is a screening test for cervical cancer. It is not a diagnostic test and is subject to false negative and false positive results. It is most reliable when a satisfactory sample, regularly obtained, is submitted with relevant clinical findings and history, and when the Pap result is evaluated along with historic and current clinical information. HPV nRNA E6/E7 Not Detected Not Detected [facility] Comment: Methodology: Mailroom Coordinator-Mediated Amplification This assay detects E6/E7 viral messenger RNA (mRNA) from 14 high-risk HPV types (16,18,31,33,35,39,45,51,52,56,58,59,66,68). Cervical sources are required for HPV testing. If a vaginal source from a patient who has had a total hysterectomy with removal of cervix was submitted, please contact the testing laboratory for alternative testing options. For additional information, please refer to http://education.Wayfair/faq/ZPQ833c1 (This link if provided for information/ educational purposes only.) Genital 09/30/2022 4:45 PM EDT 10/02/2022 2:53 AM EDT Alla Roe VALVE TESTER LAB PATHOLOGY ORDERABLES F inal Result [facility] [address], [place] [address] [facility] [address] [place] [phone] from Last 3 Months or Most Recently Relevant to Health Maintenance Insurance [email or web address] C3 Care Teams Blocker And Cutter Contact Lens Relationship Specialty Start Date End Date Nguyen Garza MD [address] [place] [phone] PCP - General Internal Medicine 08/28/24 Maribeth Brunner Economic ConsultantMerchandise Examiner 10/21/23
--- OUTSIDE RECORDS SUMMARY | 2025-01-30 11:31 | XMS_ITS | Encounter Summary ---
Author Organization [employer] Address [address] [facility] [address] [address] [address] [place] [address] Care Team Providers Care Surface Ship Usw Supervisor Name Role Phone Nguyen Garza MD Primary Care Provide r Encounter Details Date Type Department Care Team (Latest Contact Info) Description 01/30/2025 Travel Social History Tobacco Use Types Packs/Day Years [...] with others, in a hotel, in a usp, living outside on the street, on a [...] 03/07/2025 3:30 PM EST Telemedicine [facility] [address] [place] [address] Nguyen Garza MD [address] [place] [address] documented as of this encounter Visit Diagnoses Not on filedocumented in this encounter Additional Health Concerns Assessment Noted Time PHQ-9 Depression Total Score: 13 024 9:31 AM EDT documented as of this encounter Care Teams Surface Ship Usw Supervisor Relationship Specialty Start Date End Date Nguyen Garza MD [address] [place] [phone] PCP - General Internal Medicine 08/28/24 Maribeth Brunner Evaluation AssistantHaulpak Driver 10/21/23 documented as of this encounter
--- OUTSIDE RECORDS SUMMARY | 2025-01-30 11:31 | XMS_ITS | Encounter Summary ---
Author Organization [employer] Address [address] [place] [address] [address] [place] [address] Care Team Providers Care Beam House Inspector Name Role Phone Esperanza Bower Primary Care Provider [phone] Jyothi Mayo NP Primary Care Provider [phone] Nguyen Garza MD Primary Care Provide r Reason for Visit * Reason Onset Date Comments Reschedule 07/09/2023 Encounter Details Date Type Department Care Team (Late st Contact Info) Description 07/09/2023 Telephone [facility] [address] [place], [place] [phone] Esperanza Bower FNP [address] [place], [place] [phone] Reschedule Social History Tobacco Use Types Packs/Day Years [...] encounter Miscellaneous Notes * Telephone Encounter - Marlene Goncalves - 07/09/2023 12:34 PM EST Tc from pt requesting r/s PE, marine underwriter attempted to schedule, no availability for July or August. documented in this encounter Plan of Treatment Upcoming Encounters Date Type Department Care Team (Late st Contact Info) Description 03/07/2025 3:30 PM EST Telemedicine [facility] [address] [place] [address] Nguyen Garza MD [address] [place] [address] documented as of this encounter Visit Diagnoses Not on filedocumented in this encounter Additional Health Concerns Assessment Noted Time PHQ-9 Depression Total Score: 8 08/21/19 23 1:17 PM EDT documented as of this encounter Care Teams Beam House Inspector Relationship Specialty Start Date End Date Esperanza Bower FNP [address] [place] [address] PCP - General Family Medicine 11/04/22 01/03/24 Jyothi Mayo NP [address] [place] [phone] PCP - General Family Medicine 01/04/24 08/27/24 Nguyen Garza MD [address] [place] [phone] PCP - General Internal Medicine 08/28/24 Maribeth Brunner Technical Education TeacherHeading And Priming Operator 10/21/23 documented as of this encounter
--- OUTSIDE RECORDS SUMMARY | 2025-01-30 11:31 | XMS_ITS | Encounter Summary ---
Author Organization [employer] Address [address] [facility] 7 [place] [address] Care Team Providers Care Manufacturing Helper Name Role Phone Nguyen Garza MD Primary Care Provide r Reason for Visit * Reason Onset Date Comments Chart Prep 01/29/2025 Encounter Details Date Type Department Care Team ([facility] st Contact Info) Description 01/29/2025 Telephone [facility] MED[facility]INE [address] [place], [place] [phone] Nguyen Garza MD [address] [place] [address] Chart Prep Social History Tobacco Use Types Packs/Day Years [...] with others, in a hotel, in a skilled nursing, living outside on the street, on a [...] got money to buy more: Sometimes True 08/30/ 2024 Within the past 12 months,th e food [...] encounter Miscellaneous Notes * Telephone Encounter - Michelle aSnchez [place] - 01/29/2025 1:53 PM EDT Chart Prep Labs: done Images: not applicable Referrals: Patient appt was cancelled-OBgyn Vaccines due: Covid, Flu, PCV20, Tdap, and HPV Screenings: LMP Overdue care gaps: SBIRT, SDOH, PHQ-9, ELDA-7, and Disability screen documented in this encounter Plan of Treatment Upcoming Encounters Date Type Department Care Team (Late st Contact Info) Description 03/07/2025 3:30 PM EST Telemedicine [facility] MEDICINE [address] [place] [address] Nguyen Garza MD [address] [place] [phone] documented as of this encounter Visit Diagnoses Not on filedocumented in this encounter Additional Health Concerns Assessment Noted Time PHQ-9 Depression Total Score: 13 12/30/ 024 9:31 AM EDT documented as of this encounter Care Teams Manufacturing Helper Relationship Specialty Start Date End Date Nguyen Garza MD [address] [place] [address] PCP - General Internal Medicine 08/28/24 Maribeth Brunner Stapler HandOperating Systems Specialist 10/21/23 documented as of this encounter
--- OUTSIDE RECORDS SUMMARY | 2025-01-30 11:32 | XMS_ITS | Encounter Summary ---
Author Organization [employer] Address [address] [facility] [address] [place] [address] Care Team Providers Care Airline Stewardess Name Role Phone Esperanza Bower Primary Care Provider [phone] Jyothi Mayo NP Primary Care Provider [phone] Nguyen Garza MD Primary Care Provide r Reason for Visit * Reason Comments Med Refill Encounter Details Date Type Department Care Team (Late st Contact Info) Description 11/26/2022 Refill [facility] MED[facility]INE [address] [place] [address] Alla Roe FNP Constipation, unspecified constipation type [...] Orientation Straight 03/02/2022 10 :19 AM EDT COVID-19 Exposure Response Date Recorded In the last 10 days, have yo u been in contact with someone who was confirmed or suspected to have Coronavirus/COVID-19? No / Unsure 11/04/2022 2:08 PM EDT documented as of this encounter Plan of Treatment Upcoming Encounters Date Type Department Care Team (Late st Contact Info) Description 03/07/2025 3:30 PM EST Telemedicine [facility] MEDICINE [address] [place], [place] [phone] Nguyen Garza MD [address] [place], [place] [phone] documented as of this encounter Visit Diagnoses Diagnosis Constipation, unspecified constipation type documented in this encounter Additional Health Concerns Assessment Noted Time PHQ-9 Depression Total Score: 8 08/21/19 1:17 PM EDT documented as of this encounter Care Teams Airline Stewardess Relationship Specialty Start Date End Date Esperanza Bower FNP [address] [place] [address] [phone] PCP - General Family Medicine 11/04/22 01/03/24 Jyothi Mayo NP [address] [place] [address] [phone] PCP - General Family Medicine 01/04/24 08/27/24 Nguyen Garza MD [address] [place] [address] [phone] PCP - General Internal Medicine 08/28/24 Maribeth Brunner Systems Security AnalystMedical Assisting Program Director 10/21/23 documented as of this encounter
--- OUTSIDE RECORDS SUMMARY | 2025-01-30 11:32 | XMS_ITS | Encounter Summary ---
Author Organization [employer] Address [address] [facility] 7[address] [place] [address] Care Team Providers Care Thermo Cementing Folder Operator Name Role Phone Esperanza Bower Primary Care Provider [phone] Jyothi Mayo NP Primary Care Provider [phone] Nguyen Garza MD Primary Care Provide r Reason for Visit * Reason Comments Med Refill Encounter Details Date Type Department Care Team (Late st Contact Info) Description 11/28/2022 Refill [facility] MED[facility]INE [address] [place] [address] Alla Roe FNP Constipation, unspecified constipation type [...] Info) Description 03/07/2025 3:30 PM EST Telemedicine [facility] MED[facility]INE [address] [place], [place] [phone] Nguyen Garza MD [address] [place], [place] [phone] documented as of this encounter Visit Diagnoses Diagnosis Constipation, unspecified constipation type documented in this encounter Additional Health Concerns Assessment Noted Time PHQ-9 Depression Total Score: 8 08/21/19 1:17 PM EDT documented as of this encounter Care Teams Thermo Cementing Folder Operator Relationship Specialty Start Date End Date Esperanza Bower FNP [address] [place] [address] [phone] PCP - General Family Medicine 11/04/22 01/03/24 Jyothi Mayo NP [address] [place] [address] [phone] PCP - General Family Medicine 01/04/24 08/27/24 Nguyen Garza MD [address] [place] [address] [phone] PCP - General Internal Medicine 08/28/24 Maribeth Brunner Systems Software ManagerTraveling Construction Superintendent 10/21/23 documented as of this encounter
[2025-01-30 11:59] LABS: MANUAL DIFF FLAG NO
[2025-01-30 12:07] LABS: MANUAL DIFF FLAG NO
[2025-01-30 12:13] LABS: Hematocrit 36.1 % (37.0-47.0); Hemoglobin 12.0 g/dl (12.0-16.0); Imm Gran Abs Auto 0.02 X10*3/uL (0.00-0.03); Imm Gran Pct Auto 0.3 % (0.0-0.4); Lymphocytes Absolute Auto 1.9 X10*3/uL (1.2-4.9); Mean Corpuscular HGB Conc 33.2 g/dl (31.0-35.0); Mean Corpuscular Hemoglobin 28.8 pg (27.0-33.0); Mean Corpuscular Volume 86.6 fL (80.0-98.0); NRBC Abs Auto 0.000 X10*3/uL (0.0-0.012); NRBC Pct Auto 0.0 /100WBC (0.0-0.2); Platelet Count 199 X10*3/uL (160-400); Red Blood Count 4.17 X10*6/uL (4.20-5.50); White Blood Count 5.8 X10*3/uL (4.8-10.8)
[2025-01-30 12:15] LABS: Hematocrit 36.9 % (37.0-47.0); Hemoglobin 12.2 g/dl (12.0-16.0); Imm Gran Abs Auto 0.02 X10*3/uL (0.00-0.03); Imm Gran Pct Auto 0.4 % (0.0-0.4); Lymphocytes Absolute Auto 1.8 X10*3/uL (1.2-4.9); Mean Corpuscular HGB Conc 33.1 g/dl (31.0-35.0); Mean Corpuscular Hemoglobin 28.8 pg (27.0-33.0); Mean Corpuscular Volume 87.2 fL (80.0-98.0); NRBC Abs Auto 0.000 X10*3/uL (0.0-0.012); NRBC Pct Auto 0.0 /100WBC (0.0-0.2); Platelet Count 198 X10*3/uL (160-400); Red Blood Count 4.23 X10*6/uL (4.20-5.50); White Blood Count 5.5 X10*3/uL (4.8-10.8)
[2025-01-30 12:19] LABS: Total Hemoglobin (HGBA1C) 3102.2527 umol/L
[2025-01-30 12:43] LABS: Alanine Aminotransferase 30 U/L (0-31); Albumin Level 4.0 g/dL (3.5-5.0); Alkaline Phosphatase 107 U/L (39-117); Anion Gap 10 (12-20); Aspartate Amino Transferase 28 U/L (5-31); Blood Urea Nitrogen 9 mg/dL (9-16); Calcium 9.1 mg/dL (8.4-10.2); Carbon Dioxide 31 mmol/L (22-29); Chloride 105 mmol/L (96-108); Cholesterol 182 mg/dL (<200); Estimated Glomerular Filt Rate > 60; HDL Cholesterol 70 mg/dL (>40); Potassium 4.5 mmol/L (3.3-5.1); Sodium 141 mmol/L (135-145); Total Protein 6.6 g/dL (6.5-8.0); Triglycerides 93 mg/dL (<150)
[2025-01-30 12:50] LABS: HIV Num 1 0.05 S/CO (0.00-0.99); ~HepC Num1 0.10 S/CO (0.00-0.79); ~Hepatitis C Antibody Nonreactive (Nonreactive)
[2025-01-30 13:03] LABS: HBS Num1 0.31 mIU/mL (0-7.99); HBc Num1 0.17 S/CO (0.00-0.79); HBsAGNum1 0.29 S/CO (0.00-0.99); HIV Num 1 0.05 S/CO (0.00-0.99); Hepatitis A Antibody IgM 0.16 Index (0-0.79); Hepatitis B Surface Antigen Negative (Negative); ~HepC Num1 0.10 S/CO (0.00-0.79); ~Hepatitis A Antibody IgM Nonreactive (Nonreactive); ~Hepatitis B Surface Antibody NONREACTIVE (Nonreactive); ~Hepatitis C Antibody Nonreactive (Nonreactive)
[2025-01-30 13:04] LABS: Syphilis Screen Nonreactive (Nonreactive)
[2025-01-31 06:39] LABS: Rubeola IgG (Measles) 55.50 AU/mL
== END 2025-01-30 10:22 | disposition home or self-care (01) ==
LOC: HO.HHCL 10:21
PROVIDERS: Internal Medicine; PCP Internal Medicine; Visit Provider Internal Medicine
DX: Z01.84 Encounter for antibody response examination (principal); Z11.4 Encounter for screening for human immunodeficiency virus [HIV]; Z11.59 Encounter for screening for other viral diseases; Z11.3 Encounter for screening for infections with a predominantly sexual mode of transmission
CPT/HCPCS: 36415; 80053; 80061; 82306; 83036; 84443; 84702; 85025; 86592; 86704; 86706; 86709; 86735; 86762; 86765; 86780; 86803; 87340; 87389